=== PATIENT | male | born 1945 | race Caucasian/White ===

== ENCOUNTER 2018-11-26 10:56 | Outpatient (CLI) | payer MEDICARE ==
[~2018-11-26 10:56] MED LIST: Iopamidol 370 76% 100 ML VIAL ONE
[2018-11-26 11:29] LABS: Estimated GFR-MDRD - POC Greater than 90
--- NOTE | 2018-11-26 13:45 | CT ---
CT ANGIOGRAM ABDOMEN WITH AND WITHOUT IV CONTRAST AND 3D RECONSTRUCTIONS CT ANGIOGRAM PELVIS WITH AND WITHOUT IV CONTRAST AND 3D RECONSTRUCTIONS: Date: 11-26-18 History: Abdominal aortic aneurysm follow up evaluation after stent graft placement. Comparison: 11-04-14, 10-26-18 FINDINGS: Again noted are post-surgical changes related to placement of aortic iliac stent graft secondary to a n abdominal aortic aneurysm. Aneurysm sac diameter on today's exam measures 4.3 cm x 4 cm and similar slice selection on the prior study had measurements of 4 cm x 4 cm and this is overall stable when c ompared to the prior exam. Iliac limbs of the stent graft are patent. There are no findings to sugges t an endoleak. The celiac and superior mesenteric arteries are patent. Vascular calcifications are seen at the origi ns of each single renal artery which do appear patent. Vascular calcifications are seen in the iliac arteries bilaterally, but the iliac arteries as well as bilateral common femoral arteries do appear patent. Post-surgical changes are seen in each groin. Mo st proximal aspect of the superficial femoral and profunda femoral arteries are patent bilaterally. The lung bases are clear. Stable bilateral renal cysts are again noted. There is a stable hypodense lesion again seen in the le ft hepatic lobe, also likely related to a cyst. The spleen, pancreas, bilateral adrenal glands, and urinary bladder demonstrate a normal CT appearanc e. Degenerative change as well as post-surgical change of the lumbar spine are again seen. IMPRESSION: 1. Post-surgical changes related to treatment of abdominal aortic aneurysm with aortic stent graft no sara in place. Aneurysm sac diameter is grossly stable in size with greatest dimension of 4.3 cm, and no endoleak is seen. 2. Additional incidental findings are as described above, stable from prior exam. POS: [facility]
== END 2018-11-26 10:57 | disposition home or self-care (01) ==
LOC: CT 10:56
PROVIDERS: ATTEND Thoracic Surgery (Cardiothoracic Vascular Surgery)
DX: I71.4 Abdominal aortic aneurysm, without rupture (principal); Z95.828 Presence of other vascular implants and grafts
CPT/HCPCS: 74174; 82565; Q9967

== ENCOUNTER 2019-03-13 09:17 | Outpatient (CLI) | payer MEDICARE ==
--- NOTE | 2019-03-13 16:17 | NM ---
NUCLEAR MEDICINE BONE SCAN WHOLE BODY: (SKELETAL SCINTIGRAPHY) 03/13/19 HISTORY: 73-year-old male with malignant neoplasm of prostate. TECHNIQUE: IV injection of [id number]: 32.8 mCi 3 hour delayed whole body skeletal scintigraphy in anterior and posterior views. FINDINGS: There is a single focus of increased uptake focally at the lateral aspect of the right 7th rib. In re trospect, there is a subtle finding of a nondisplaced linear fracture lucency in thact location on CT of 10/26/18, and the current study represents osteoblastic repair activity. There are bilateral symme trical foci of very increased uptake at the bilateral sternoclavicular joints, for which that previou s CT demonstrates severe DJD. There is increased uptake at the bilateral knees consistent with osteoarthrosis. There are no foci of increased uptake in the skeleton that are suspicious for skeletal metastasis. IMPRESSION: 1. No evidence of skeletal metastasis. 2. Healing nondisplaced fracture of lateral aspect of the right 7th rib. 3. 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 4. Osteoarthrosis of bilateral knees. SHIRLENE Sanchez POS: [facility]
== END 2019-03-13 09:18 | disposition home or self-care (01) ==
LOC: NM 09:17
PROVIDERS: ATTEND Urology
DX: C61 Malignant neoplasm of prostate (principal); S22.31XD Fracture of one rib, right side, subsequent encounter for fracture with routine healing; M17.0 Bilateral primary osteoarthritis of knee; M19.012 Primary osteoarthritis, left shoulder; M19.011 Primary osteoarthritis, right shoulder
CPT/HCPCS: 78306; A9503

== ENCOUNTER 2019-08-01 12:12 | Outpatient (CLI) | payer MEDICARE ==
--- NOTE | 2019-08-01 13:31 | CT ---
EXAM: CT chest without contrast per low-dose cancer screening protocol HISTORY: History of smoking and nicotine dependence; greater than 60 pack-year smoking history. COMPARISON: None TECHNIQUE: Multiple contiguous axial images were obtained in a CT of the chest without contrast per l ow-dose cancer screening protocol. Sagittal and coronal reformats were performed. FINDINGS: Pulmonary nodules: No suspicious pulmonary nodules are seen. No focal infiltrates are seen. Pleural space: No pneumothorax or pleural effusion are seen. Heart: The heart is normal in size. Calcifications in the coronary arteries. Mediastinum: No hilar or mediastinal lymphadenopathy appreciated on this limited noncontrast examinat ion. Bones: Degenerative changes in the spine.. Visualized subdiaphragmatic structures: 2.5 cm hepatic hypodensity likely represents a cyst.. IMPRESSION: Lung RADS category 1-negative.
== END 2019-08-01 12:13 | disposition home or self-care (01) ==
LOC: CT 12:12
PROVIDERS: ATTEND Internal Medicine Hematology & Oncology
DX: F17.210 Nicotine dependence, cigarettes, uncomplicated (principal)
CPT/HCPCS: G0297

== ENCOUNTER 2019-11-24 13:25 | Outpatient (CLI) | payer MEDICARE ==
--- NOTE | 2019-11-24 15:30 | RAD ---
PA AND LATERAL CHEST: Date: 11/24/2019 HISTORY: Cough and hoarseness. COMPARISON: 09/08/10 study. FINDINGS: Heart size is within normal limits. There are atherosclerotic changes of the aorta. Lungs are clear o f any infiltrates. Some minimally increased interstitial lung changes are seen. IMPRESSION: Very mild chronic interstitial changes. POS: [facility]
== END 2019-11-24 13:26 | disposition home or self-care (01) ==
LOC: BICRAD 13:25
PROVIDERS: ATTEND Internal Medicine
DX: R05 Cough (principal); R49.9 Unspecified voice and resonance disorder; C61 Malignant neoplasm of prostate; F17.210 Nicotine dependence, cigarettes, uncomplicated
CPT/HCPCS: 36415; 71046; 80053; 82248; 83615; 84100; 84153; 84550

== ENCOUNTER 2020-02-26 10:47 | Observation (INO) | payer MEDICARE ==
[2020-02-26 11:24] LABS: #Eosinphils 0.2 thou/uL (0.0-0.7); #Lymphocytes 1.5 thou/uL (1.20-3.40); #Monocytes 0.9 thou/uL (0.11-0.59); #Neutrophils 6.1 thou/uL (1.40-6.50); %Basophils 0.3 % (0.0-1.0); %Eosinophils 2.9 % (0.0-10.0); %Lymphocytes 16.8 % (21.0-51.0); %Monocytes 10.1 % (0.0-10.0); %Neutrophils 69.9 % (42.0-75.0); Hemoglobin 15.5 g/dL (14.0-18.0); Mean Corpuscular HGB CONC 33.1 g/dL (32.0-36.0); Mean Corpuscular Hemoglobin 29.4 pg (27.0-31.0); Mean Corpuscular Volume 88.8 fL (78.0-98.0); Mean Platelet Volume 7.2 fL (7.4-10.4); Platelet Count 267 thou/uL (130-400); RBC Distribution Width 12.9 % (11.5-14.5); Red Blood Cell (RBC) Count 5.26 mill/uL (4.70-6.10); White Blood Cell (WBC) Count 8.7 thou/uL (4.8-10.8)
--- NOTE | 2020-02-26 11:36 | RAD ---
PORTABLE CHEST: Date: 02/26/2020 PROVIDED CLINICAL HISTORY: Shortness of breath. FINDINGS: Comparison with 02/17/2020 from [facility] [place]. Cardiac and mediastinal silhouette is within normal limits. Vascular calcification involves the aorti c arch. No focal consolidation, pleural fluid, or pneumothorax apparent. IMPRESSION: No evidence for an acute cardiopulmonary process. POS: [facility]
[2020-02-26 11:46] LABS: ALT (SGPT) 16 U/L (8-55); AST (SGOT) 25 U/L (5-34); Albumin 4.1 g/dL (3.4-4.8); Alkaline Phosphatase 122 U/L (40-110); Anion Gap 14 mmol/L (10-20); BUN (Urea Nitrogen) 28 mg/dL (8.4-25.7); Bilirubin, Total 0.5 mg/dL (0.2-1.2); Calc. Creatinine Clearance 0 mL/min (70-130); Calcium 9.3 mg/dL (7.8-10.44); Carbon Dioxide 29 mmol/L (23-31); Chloride 97 mmol/L (98-107); Estimated GFR-MDRD 53; Globulin 2.4 g/dL (2.4-3.5); Glucose 159 mg/dL (83-110); Magnesium 1.8 mg/dL (1.6-2.6); Potassium 3.4 mmol/L (3.5-5.1); Protein, Total 6.5 g/dL (5.8-8.1); Sodium 137 mmol/L (136-145)
[2020-02-26] MEDS ORDERED: Enoxaparin Sodium 100 MG/ML SYRINGE ONE (12:49)
[2020-02-26] MEDS ORDERED: Enoxaparin Sodium 30 MG/0.3 ML SYRINGE ONE (12:49)
[2020-02-26] MEDS ORDERED: Enoxaparin Sodium 80 MG/0.8 ML SYRINGE ONE (12:52)
[2020-02-26] MEDS ORDERED: Diltiazem 125 MG in Sodium Chloride 0.9% 100 ML IVPB PRN (13:43)
[2020-02-26 14:38] LABS: Troponin I 0.017 ng/mL (< 0.028)
[2020-02-26 15:28] VITALS: BMI 30.6
[2020-02-26] MEDS: Amiodarone 200 MG TAB PO SCH ×2 (15:57→20:53)
[2020-02-26 17:28] LABS: Troponin I 0.042 ng/mL (< 0.028)
[2020-02-26] MEDS: Acetaminophen/Codeine 30-300mg Tablet PO PRN ×2 (17:42→22:40)
[2020-02-26] MEDS ORDERED: Potassium Chloride 20 MEQ TAB PO SCH (17:45)
[2020-02-26] MEDS: Apixaban 5 MG TAB PO SCH (20:54)
--- NOTE | 2020-02-26 20:54 | HP ---
CHIEF COMPLAINT: Shortness of breath. HISTORY OF PRESENT ILLNESS: The patient is a 74-year-old male with history of coronary artery disease, hypertension, thyroid cancer status post resection, and prostate cancer undergoing chemo and radiation. The patient presented to the hospital today for shortness of breath that started yesterday evening. The patient checked his blood pressure and was found to be low according to him. He visited his business continuity planner, Dr. Torres, and he was noted to be tachycardic and EKG revealed atrial fibrillation with rapid ventricular response of new onset. In the ER, the patient was given a dose of diltiazem and his rate is currently controlled. REVIEW OF SYSTEMS: Negative except as noted in HPI. PAST MEDICAL HISTORY: As noted above. PAST SURGICAL HISTORY: Thyroid resection. ALLERGIES: THE PATIENT IS ALLERGIC TO IODINE. PHYSICAL EXAMINATION: GENERAL: The patient is alert and oriented x3. HEENT: Head is normocephalic and atraumatic. Extraocular muscles are intact. NECK: Supple. CARDIOVASCULAR: Examination revealed irregularly irregular rhythm with controlled rate. No murmurs, rubs, or gallop. ABDOMEN: Soft, nontender, and nondistended. NEUROLOGIC: Revealed cranial nerves intact 2 through 12 intact, motor and sensory exam. Peripheral edema is noted on extremity examination. ASSESSMENT: 1. New onset atrial fibrillation with rapid ventricular response. 2. Coronary artery disease. 3. History of prostate cancer. 4. History of thyroid cancer. 5. Hypothyroidism. 6. Hypertension. PLAN: 1. Admit to tele. Start amiodarone 400 mg orally t.i.d. 2. Start Eliquis 5 mg orally twice daily for atrial fibrillation with elevated CHADS-VASc score. 3. Diltiazem drip as needed for heart rate greater than 110. 4. Consult his business continuity planner, Dr. Torres. Job ID: [id number]
[2020-02-26] MEDS ORDERED: Amitriptyline HCl 25 MG TAB PO SCH (21:00)
[2020-02-27 04:48] LABS: #Eosinphils 0.4 thou/uL (0.0-0.7); #Lymphocytes 1.3 thou/uL (1.20-3.40); #Monocytes 0.7 thou/uL (0.11-0.59); #Neutrophils 3.7 thou/uL (1.40-6.50); %Basophils 0.3 % (0.0-1.0); %Eosinophils 7.3 % (0.0-10.0); %Monocytes 11.2 % (0.0-10.0); %Neutrophils 60.3 % (42.0-75.0); Hemoglobin 13.8 g/dL (14.0-18.0); Mean Corpuscular Hemoglobin 29.6 pg (27.0-31.0); Mean Corpuscular Volume 89.8 fL (78.0-98.0); Platelet Count 231 thou/uL (130-400); RBC Distribution Width 12.9 % (11.5-14.5); Red Blood Cell (RBC) Count 4.66 mill/uL (4.70-6.10); White Blood Cell (WBC) Count 6.2 thou/uL (4.8-10.8)
[2020-02-27 05:07] LABS: Anion Gap 9 mmol/L (10-20); BUN (Urea Nitrogen) 21 mg/dL (8.4-25.7); Calc. Creatinine Clearance 90 mL/min (70-130); Calcium 8.8 mg/dL (7.8-10.44); Carbon Dioxide 32 mmol/L (23-31); Chloride 103 mmol/L (98-107); Estimated GFR-MDRD 66; Glucose 130 mg/dL (83-110); Potassium 3.5 mmol/L (3.5-5.1); Sodium 140 mmol/L (136-145)
[2020-02-27] MEDS: Acetaminophen/Codeine 30-300mg Tablet PO PRN ×2 (06:58→14:15)
[2020-02-27] MEDS: Amiodarone 200 MG TAB PO SCH ×2 (09:21→14:15)
[2020-02-27] MEDS: Apixaban 5 MG TAB PO SCH (09:22)
[2020-02-27] MEDS ORDERED: Potassium Chloride 20 MEQ TAB PO SCH (14:45)
[2020-02-27] MEDS ORDERED: Spironolactone 25 MG TAB PO SCH (15:00)
[2020-02-27] MEDS ORDERED: Magnesium Sulfate 3 GM in Sodium Chloride 0.9% 100 ML IVPB SCH (15:00)
[2020-02-27] MEDS ORDERED: Lisinopril 20 MG TAB PO SCH (15:00)
[2020-02-27 15:29] VITALS: BP 162/62; TEMP 97.8
--- NOTE | 2020-02-27 15:39 | PRG ---
DATE OF SERVICE: 02/27/2020 SUBJECTIVE: Mr. Nieves feels better today. He did convert to sinus rhythm yesterday. He has been being loaded with amiodarone. Feels better, wants to go home. No chest pain or pressure. OBJECTIVE: VITAL SIGNS: Blood pressure is high 149/72. He did not receive the lisinopril this morning or the diuretic. LUNGS: Clear. CARDIAC: Normal S1 and normal S2. ABDOMEN: Soft and nontender. EXTREMITIES: Only mild edema now. ASSESSMENT: 1. Diastolic heart failure with improved volume status. 2. Hypertension. 3. Paroxysmal atrial fibrillation. 4. Coronary artery disease. 5. Peripheral vascular disease. PLAN: 1. He has been started on Eliquis 5 mg twice a day orally. 2. We will stop Plavix. 3. Continue aspirin. 4. Torsemide 20 mg twice a day. 5. Spironolactone increased to 25 mg twice a day. 6. Lisinopril 40 mg a day. 7. Stop amlodipine for now. 8. We will call him back in the office next week and get him back and see him, double check his status. We are also going to give him some intravenous magnesium, then he can be released home. Job ID: [id number]
[2020-02-27] MEDS ORDERED: Rosuvastatin 10 MG TAB PO SCH (21:00)
[2020-02-28] MEDS ORDERED: Spironolactone 25 MG TAB PO SCH (08:00)
[2020-02-28] MEDS ORDERED: Lisinopril 20 MG TAB PO SCH (09:00)
[2020-02-28] MEDS ORDERED: Torsemide 20 MG TAB PO SCH (09:00)
[2020-02-28] MEDS ORDERED: Aspirin 325 mg Enteric Coated Tablet PO SCH (09:00)
[2020-02-28] MEDS ORDERED: Amiodarone 200 MG TAB PO SCH (09:00)
== END 2020-02-27 17:43 | disposition home or self-care (01) ==
LOC: ERS 10:47 → 2NO 13:38
PROVIDERS: ADMIT Internal Medicine; ATTEND Internal Medicine
DX: I48.0 Paroxysmal atrial fibrillation (principal); I11.0 Hypertensive heart disease with heart failure; I50.30 Unspecified diastolic (congestive) heart failure; I25.10 Atherosclerotic heart disease of native coronary artery without angina pectoris; I73.9 Peripheral vascular disease, unspecified; C61 Malignant neoplasm of prostate; E89.0 Postprocedural hypothyroidism; K21.9 Gastro-esophageal reflux disease without esophagitis; F17.200 Nicotine dependence, unspecified, uncomplicated; Z79.02 Long term (current) use of antithrombotics/antiplatelets; Z79.52 Long term (current) use of systemic steroids; Z79.82 Long term (current) use of aspirin; Z79.899 Other long term (current) drug therapy; Z88.5 Allergy status to narcotic agent; Z91.041 Radiographic dye allergy status
CPT/HCPCS: 71045; 80048; 83605; 83735; 83880; 84439; 84484 ×2; 85025; 93005; 96365; 96372; 96376; 99285; G0378 ×3; 36415; 80053; 84443; 96374; J1650; J3475; J3490

== ENCOUNTER 2020-08-03 09:43 | Outpatient (CLI) | payer MEDICARE ==
--- NOTE | 2020-08-03 10:41 | CT ---
EXAM: CT chest without contrast PROVIDED CLINICAL HISTORY: Personal history of nicotine dependence, low dose lung screening COMPARISON: 08/01/2019 FINDINGS: Vascular calcification including coronary calcium is demonstrated. The heart, pericardium and great v essels are suboptimally evaluated in the absence of IV contrast material but demonstrate an otherwise unremarkable unenhanced CT appearance. The airway appears patent and of normal caliber. The lungs are free of suspicious opacity. No pleural fluid, pleural thickening or pneumothorax apparent. No evidence for dressing lymph node enlargement with limitations due to lack of IV contrast material. The visualized portions of the upper abdomen demonstrate a stable unenhanced CT appearance. The osseous structures demonstrate no concerning lytic or blastic lesions. Prominent thoracic spondyl osis changes are seen. IMPRESSION: Lung RADS category 1-negative. Continue annual screening.
== END 2020-08-03 09:44 | disposition home or self-care (01) ==
LOC: BICCT 09:43
PROVIDERS: ATTEND Internal Medicine Hematology & Oncology
DX: Z12.2 Encounter for screening for malignant neoplasm of respiratory organs (principal); F17.210 Nicotine dependence, cigarettes, uncomplicated
CPT/HCPCS: G0297

== ENCOUNTER 2020-10-18 07:49 | Outpatient (CLI) | payer MEDICARE ==
[2020-10-18 14:23] LABS: Hemoglobin 15.1 g/dL (14.0-18.0); Mean Corpuscular HGB CONC 32.8 G/DL (32.0-36.0); Mean Corpuscular Hemoglobin 28.4 PG (27.0-33.0); Mean Corpuscular Volume 86.8 fl (80.0-100.0); Mean Platelet Volume 9.9 fl (7.4-10.4); Platelet Count 278 10x3/uL (130-400); RBC Distribution Width 13.7 % (11.5-14.5); Red Blood Cell (RBC) Count 5.31 10x6/uL (4.40-5.80); White Blood Cell (WBC) Count 7.8 10x3/uL (4.5-11.0)
[2020-10-18 14:38] LABS: Prothrombin Time 10.9 sec (9.5-12.1)
[2020-10-18 15:29] LABS: Anion Gap 16 mmol/L (10-20); BUN (Urea Nitrogen) 16 mg/dL (8.4-25.7); Calc. Creatinine Clearance 0 mL/min (70-130); Calcium 9.5 mg/dL (7.8-10.44); Carbon Dioxide 23 mmol/L (23-31); Chloride 103 mmol/L (98-107); Glucose 97 mg/dL (83-110); Potassium 4.4 mmol/L (3.5-5.1); Sodium 138 mmol/L (136-145)
[2020-10-18 22:19] LABS: SARS-CoV-2 MS2 Positive; SARS-CoV-2 N Gene Negative; SARS-CoV-2 S Gene Negative; SARS-CoV-2 by NAA Not Detected (NotDetected); SARS-CoV-2 orf1ab Negative
== END 2020-10-18 07:50 | disposition home or self-care (01) ==
LOC: LABBT 07:49
PROVIDERS: ATTEND Internal Medicine Cardiovascular Disease
DX: Z01.812 Encounter for preprocedural laboratory examination (principal); I48.0 Paroxysmal atrial fibrillation; Z20.822 Contact with and (suspected) exposure to COVID-19
CPT/HCPCS: 80048; 85027; 85610; U0003; 87635

== ENCOUNTER 2020-12-02 08:56 | Day surgery (SDC) | payer MEDICARE ==
[2020-12-01 14:11] VITALS: BMI 30.9
[2020-12-02] MEDS ORDERED: Heparin 10,000 UNITS/ 10 ML VIAL ONE ×2 (09:13→11:36)
[2020-12-02] MEDS ORDERED: Fentanyl 100 MCG/2 ML VIAL ONE ×4 (09:26→14:33)
[2020-12-02] MEDS ORDERED: ePHEDrine 50 MG/ML VIAL ONE (09:31)
[2020-12-02] MEDS ORDERED: PROPOFOL 200 MG/20 ML VIAL ONE (09:31)
[2020-12-02] MEDS ORDERED: Glycopyrrolate 0.2 MG/ML 5 ML SYRINGE ONE (09:31)
[2020-12-02] MEDS ORDERED: Ondansetron PF 4 MG/2 ML Vial ONE (09:31)
[2020-12-02] MEDS ORDERED: Lidocaine 1% PF 5 ML VIAL ONE (09:31)
[2020-12-02] MEDS ORDERED: Rocuronium Bromide 10 MG/ML (10ML VIAL) ONE (09:31)
[2020-12-02] MEDS ORDERED: Dexamethasone 20 MG/5 ML VIAL ONE (09:31)
[2020-12-02] MEDS ORDERED: Lidocaine 1% (PF) 30 ML VIAL ONE (09:32)
[2020-12-02] MEDS ORDERED: Phenylephrine 10 MG/ML VIAL ONE (10:38)
[2020-12-02] MEDS ORDERED: Heparin 25,000 units/D5W 500 ML ONE (11:19)
[2020-12-02] MEDS ORDERED: Protamine Sulfate 50 MG/5 ML VIAL ONE (12:50)
[2020-12-02] MEDS ORDERED: Promethazine HCl 25 MG/ML VIAL ONE (14:05)
--- NOTE | 2020-12-02 14:50 | OP ---
DATE OF PROCEDURE: 12/02/2020 PRIMARY CARE PHYSICIAN: Rico Marin MD REFERRING AUTO PARTS CLERK: Khadra Torres MD. PREOPERATIVE DIAGNOSIS: Paroxysmal atrial fibrillation. POSTOPERATIVE DIAGNOSIS: Paroxysmal atrial fibrillation. PROCEDURES PERFORMED: 1. Pulmonary vein isolation. 2. Additional linear lesions, cavotricuspid isthmus ablation. 3. 3D mapping of arrhythmia. 4. Intracardiac echocardiography. RETAIL CASHIER ASSOCIATE: None. ANESTHESIA: General endotracheal. SPECIMENS: None. ESTIMATED BLOOD LOSS: 20 mL. COMPLICATIONS: None. DESCRIPTION OF PROCEDURE: The risks, benefits, and alternatives were discussed prior to the procedure including, but not limited to myocardial infarction, stroke, , damage to oropharyngeal or esophageal structures, damage to vascular structures would need for surgery, damage to cardiac structures would need for surgery, pericardial effusion, and allergic reaction. The patient voiced understanding and was agreeable to proceed. The patient was intubated by Anesthesia. Transesophageal echocardiogram showed normal left atrial size with ejection fraction of 65%, aortic sclerosis, and trace mitral regurgitation. Bilateral femoral areas were prepped and draped in a sterile fashion. Lidocaine was infiltrated in these areas. Using ultrasound guidance, two long 7-Polish sheaths were placed in the left femoral vein and two Lamp 45 sheaths were placed in the right femoral vein. A 7-Polish sheath was exchanged for a long 9-Polish sheath. Decapolar catheter was placed in the coronary sinus with 3D guidance. Intracardiac echo was placed in the right atrium. 3D mapping was performed with HD Grid catheter. Transseptal catheterization was performed. 3D mapping of the left atrium was performed. A 2nd transseptal puncture was performed. The Lamp 45 sheath was exchanged over a guidewire for the Agilis sheath. Using a TactiCath SE catheter, radiofrequency in the usual area was applied to the pulmonary vein antrum to isolate all 4 pulmonary veins. Esophageal temperature was monitored during the case. There was no esophageal temperature rise. Heparin was given prior to transseptal catheterization and ACT was monitored for target 300 to 350 seconds. Sheaths were pulled back to the right side. Heparin was discontinued and protamine was given. Cavotricuspid isthmus ablation was performed medial to lateral and lateral to medial block, persisted 20 minutes after the last radiofrequency lesion with conduction across the isthmus at 187 milliseconds. Sheaths were pulled. 0 Ethibond sutures were used to assist with closure. The patient tolerated procedure well. He was transferred to the postanesthesia care unit without complications. CONCLUSION: 1. Paroxysmal atrial fibrillation. 2. Successful pulmonary vein isolation and cavotricuspid isthmus ablation. PLAN: 1. Restart Eliquis 5 mg b.i.d. tonight. 2. Continue Multaq. 3. Continue omeprazole. 4. Follow up with TYREE Hall on 12/16/2020 at 10:00 a.m. Job ID: [id number]
[2020-12-02] MEDS ORDERED: Acetaminophen/Codeine 30-300mg Tablet ONE (15:43)
[2020-12-02] MEDS ORDERED: hydrALAZINE 20 MG/ML VIAL ONE (15:55)
--- NOTE | 2020-12-02 21:06 | EKG ---
Test Reason : POST ABLATION Blood Pressure : / mmHG Vent. Rate : 068 BPM Atrial Rate : 068 BPM P-R Int : 196 ms QRS Dur : 098 ms QT Int : 464 ms P-R-T Axes : 079 040 063 degrees QTc Int : 493 ms Normal sinus rhythm Prolonged QT Abnormal ECG No previous ECGs available Confirmed by Linda FALCON ([id number]) on 12/02/2020 9:05:59 PM Referred By: SARAH Confirmed By:Linda FALCON
== END 2020-12-02 20:05 | disposition home or self-care (01) ==
LOC: CCL 08:56
PROVIDERS: ATTEND Internal Medicine Cardiovascular Disease
PROC: 4A023FZ Measurement of Cardiac Rhythm, Percutaneous Approach (ICD-10-PCS; principal; 2020-12-02)
PROC: 4A0234Z Measurement of Cardiac Electrical Activity, Percutaneous Approach (ICD-10-PCS; 2020-12-02)
PROC: 02583ZZ Destruction of Conduction Mechanism, Percutaneous Approach (ICD-10-PCS; 2020-12-02)
PROC: 02K83ZZ Map Conduction Mechanism, Percutaneous Approach (ICD-10-PCS; 2020-12-02)
PROC: B24BZZ4 Ultrasonography of Heart with Aorta, Transesophageal (ICD-10-PCS; 2020-12-02)
DX: I48.0 Paroxysmal atrial fibrillation (principal); Z79.82 Long term (current) use of aspirin; Z79.899 Other long term (current) drug therapy; Z88.5 Allergy status to narcotic agent; Z91.041 Radiographic dye allergy status
CPT/HCPCS: 76942; 85347; 93005; 93312; 93613; 93622; 93655; 93656; 93662; C1730; C1731; C1732; C1753; C1894; C2630; J0360; J1100; J1644; J2001; J2370; J2405; J2550; J2704; J2720; J3010; J3490

== ENCOUNTER 2021-08-04 09:04 | Outpatient (CLI) | payer MEDICARE | END 2021-08-04 09:05 | disposition home or self-care (01) | LOC: BICCT 09:04 | PROVIDERS: ATTEND Internal Medicine Hematology & Oncology | DX: Z12.2 Encounter for screening for malignant neoplasm of respiratory organs (principal); F17.210 Nicotine dependence, cigarettes, uncomplicated | CPT/HCPCS: 71271 ==

== ENCOUNTER 2022-03-01 12:11 | Outpatient (CLI) | payer MEDICARE | END 2022-03-01 12:12 | disposition home or self-care (01) | LOC: MRI 12:11 | PROVIDERS: ATTEND Nurse Practitioner Family | DX: M50.10 Cervical disc disorder with radiculopathy, unspecified cervical region (principal); M50.00 Cervical disc disorder with myelopathy, unspecified cervical region | CPT/HCPCS: 72141 ==

== ENCOUNTER 2022-03-24 15:28 | Outpatient (CLI) | payer MEDICARE | END 2022-03-24 15:29 | disposition home or self-care (01) | LOC: TBSIIMAG 15:28 | PROVIDERS: ATTEND Neurological Surgery | DX: M47.22 Other spondylosis with radiculopathy, cervical region (principal) | CPT/HCPCS: 72040 ==

== ENCOUNTER 2022-05-25 11:02 | Outpatient (CLI) | payer MEDICARE | END 2022-05-25 11:03 | disposition home or self-care (01) | LOC: LABBT 11:02 | PROVIDERS: ATTEND Thoracic Surgery (Cardiothoracic Vascular Surgery) | DX: Z53.9 Procedure and treatment not carried out, unspecified reason (principal) | CPT/HCPCS: 80048; 85027; 86850; 86900; 86901; 87811 ==

== ENCOUNTER 2022-07-24 10:02 | Outpatient (CLI) | payer MEDICARE | END 2022-07-24 10:03 | disposition home or self-care (01) | LOC: BICCT 10:02 | PROVIDERS: ATTEND Internal Medicine Hematology & Oncology | DX: Z12.2 Encounter for screening for malignant neoplasm of respiratory organs (principal); F17.210 Nicotine dependence, cigarettes, uncomplicated | CPT/HCPCS: 71271 ==

== ENCOUNTER 2022-09-21 13:48 | Outpatient (CLI) | payer MEDICARE | END 2022-09-21 13:49 | disposition home or self-care (01) | LOC: BICRAD 13:48 | PROVIDERS: ATTEND Family Medicine | DX: Z01.818 Encounter for other preprocedural examination (principal); J98.4 Other disorders of lung; R91.8 Other nonspecific abnormal finding of lung field | CPT/HCPCS: 71046 ==

== ENCOUNTER 2022-09-26 12:17 | Outpatient (CLI) | payer MEDICARE ==
[2020-11-29 12:33] LABS: Hemoglobin 14.6 g/dL (13.5-17.5); Mean Corpuscular HGB CONC 32.4 g/dL (32.0-36.0); Mean Corpuscular Hemoglobin 28.4 pg (27.0-33.0); Mean Corpuscular Volume 87.5 fl (81.2-95.1); Mean Platelet Volume 9.5 fl (7.4-10.4); Platelet Count 254 10x3/uL (150-450); RBC Distribution Width 13.8 % (11.5-14.5); Red Blood Cell (RBC) Count 5.14 10x6/uL (4.32-5.72)
[2020-11-29 12:47] LABS: Prothrombin Time 10.8 sec (9.5-12.1)
[2020-11-29 13:14] LABS: Anion Gap 13 mmol/L (10-20); BUN (Urea Nitrogen) 16 mg/dL (8.4-25.7); Calc. Creatinine Clearance 0 mL/min (70-130); Calcium 9.2 mg/dL (7.8-10.44); Carbon Dioxide 26 mmol/L (23-31); Chloride 104 mmol/L (98-107); Glucose 168 mg/dL (83-110); Potassium 4.6 mmol/L (3.5-5.1); Sodium 138 mmol/L (136-145)
[2022-09-26 14:15] LABS: Hemoglobin 14.8 g/dL (13.5-17.5); Mean Corpuscular Hemoglobin 29.2 pg (27.0-33.0); Mean Corpuscular Volume 88.6 fl (81.2-95.1); Mean Platelet Volume 9.5 fl (7.4-10.4); Platelet Count 225 10x3/uL (150-450); RBC Distribution Width 14.5 % (11.5-14.5); Red Blood Cell (RBC) Count 5.07 10x6/uL (4.32-5.72); White Blood Cell (WBC) Count 6.6 10x3/uL (3.5-10.5)
[2022-09-26 14:18] LABS: INR-International Normal Ratio 0.9; PTT 30.5 sec (22.0-33.0); Prothrombin Time 10.3 sec (9.5-12.1)
[2022-09-26 14:20] LABS: Anion Gap 14 mmol/L (10-20); BUN (Urea Nitrogen) 19 mg/dL (8.4-25.7); Calc. Creatinine Clearance 0 mL/min (70-130); Calcium 9.2 mg/dL (7.8-10.44); Carbon Dioxide 24 mmol/L (23-31); Chloride 107 mmol/L (98-107); Estimated GFR 60; Glucose 115 mg/dL (83-110); Potassium 4.8 mmol/L (3.5-5.1); Sodium 140 mmol/L (136-145)
== END 2022-09-26 12:18 | disposition home or self-care (01) ==
LOC: LABBT 12:17
PROVIDERS: ATTEND Neurological Surgery
DX: Z01.812 Encounter for preprocedural laboratory examination (principal); M47.12 Other spondylosis with myelopathy, cervical region; Z20.822 Contact with and (suspected) exposure to COVID-19
CPT/HCPCS: 80048; 85027; 85610; U0003; U0005; 85730

== ENCOUNTER 2022-10-03 09:25 | Inpatient (IN) | payer MEDICARE ==
[2022-09-28 08:53] VITALS: BMI 31.6
[2022-10-03] MEDS ORDERED: Neomycin-Polymyxin 1 ML AMP ONE (11:31)
[2022-10-03] MEDS ORDERED: Thrombin 5000 UNITS/5 ML VIAL ONE (11:31)
[2022-10-03] MEDS ORDERED: Lidocaine 1% (PF) 30 ML VIAL ONE (11:33)
[2022-10-03] MEDS ORDERED: EPINEPHrine 1 MG/ML AMP ONE (11:33)
[2022-10-03] MEDS ORDERED: CEFAZOLIN 2 GM VIAL ONE (11:52)
[2022-10-03] MEDS ORDERED: Sodium Chloride 0.9% 100 ML ONE (11:52)
[2022-10-03] MEDS ORDERED: Fentanyl 250 MCG/5 ML VIAL ONE (12:00)
[2022-10-03] MEDS ORDERED: Dexamethasone 20 MG/5 ML VIAL ONE (12:20)
[2022-10-03] MEDS ORDERED: Rocuronium Bromide 10 MG/ML (10ML VIAL) ONE (12:20)
[2022-10-03] MEDS ORDERED: Ondansetron PF 4 MG/2 ML Vial ONE (12:20)
[2022-10-03] MEDS ORDERED: PHENYLEPHRINE-NS 100 MCG/ML 10 ML SYRINGE ONE (12:20)
[2022-10-03] MEDS ORDERED: NEOSTIGMINE 3 MG/3 ML SYR 3 MG/3 ML SYRINGE ONE (12:20)
[2022-10-03] MEDS ORDERED: PROPOFOL 200 MG/20 ML VIAL ONE (12:20)
[2022-10-03] MEDS ORDERED: Lidocaine 1% PF 5 ML VIAL ONE (12:20)
[2022-10-03] MEDS ORDERED: Vecuronium 10 MG VIAL ONE (12:20)
[2022-10-03] MEDS ORDERED: ePHEDrine 50 MG/ML VIAL ONE (12:20)
[2022-10-03] MEDS ORDERED: Glycopyrrolate 0.2 MG/ML 5 ML SYRINGE ONE (12:20)
[2022-10-03] MEDS ORDERED: Succinylcholine Chloride 100 MG/5 ML SYRINGE FS ONE (12:20)
[2022-10-03] MEDS ORDERED: Promethazine HCl 25 MG/ML VIAL IVPB PRN (17:57)
[2022-10-03] MEDS ORDERED: Ondansetron HCl/PF 4 MG/2 ML Vial IVP PRN (17:57)
[2022-10-03] MEDS ORDERED: Promethazine HCl 25 MG/ML VIAL IM PRN ×2 (17:57→17:59)
[2022-10-03] MEDS ORDERED: HYDROmorphone 2 MG/ML VIAL SLOW IVP PRN (17:57)
[2022-10-03] MEDS ORDERED: Promethazine HCl 12.5 MG SUPP PR PRN (17:59)
[2022-10-03] MEDS ORDERED: Bisacodyl 10 MG SUPP PR PRN (17:59)
[2022-10-03] MEDS ORDERED: Promethazine 25 MG TAB PO PRN (17:59)
[2022-10-03] MEDS ORDERED: diphenhydrAMINE 25 MG CAP PO PRN (17:59)
[2022-10-03] MEDS ORDERED: Ondansetron PF 4 MG/2 ML Vial IVP PRN (17:59)
[2022-10-03] MEDS ORDERED: diphenhydrAMINE 50 MG/ML VIAL IVP PRN (17:59)
[2022-10-03] MEDS ORDERED: Fentanyl 100 MCG/2 ML VIAL ONE ×2 (18:01→18:34)
[2022-10-03] MEDS ORDERED: Fentanyl 100 MCG/2 ML VIAL SLOW IVP PRN (18:05)
[2022-10-03] MEDS ORDERED: traMADol HCl 50 MG TAB PO PRN (18:06)
[2022-10-03] MEDS: Sodium Chloride 0.9% 1,000 ML IV SCH (20:17)
[2022-10-03] MEDS: CEFAZOLIN 3 GM in Sodium Chloride 0.9% 100 ML IVPB SCH ×2 (20:17→20:56)
[2022-10-03] MEDS: traMADol HCl 50 MG TAB PO PRN (20:20)
[2022-10-03 21:21] LABS: SARS-CoV-2 NAA Rapid Test Not Detected (NotDetected)
[2022-10-03] MEDS ORDERED: Acetaminophen 325 MG TAB PO PRN (21:39)
[2022-10-03] MEDS ORDERED: Ondansetron ODT 4 MG TAB PO PRN (21:39)
[2022-10-03] MEDS ORDERED: Docusate 100 MG CAP PO PRN (21:41)
[2022-10-03] MEDS ORDERED: Baclofen 10 MG TAB PO PRN (21:41)
[2022-10-03] MEDS ORDERED: Pregabalin 50 MG CAP PO SCH (22:00)
[2022-10-03] MEDS ORDERED: FENTANYL 50 MCG/ML 1 ML VIAL SLOW IVP PRN (23:38)
[2022-10-04] MEDS: traMADol HCl 50 MG TAB PO PRN ×2 (02:05→09:01)
[2022-10-04] MEDS: CEFAZOLIN 3 GM in Sodium Chloride 0.9% 100 ML IVPB SCH (03:41)
[2022-10-04] MEDS ORDERED: Tamsulosin HCl 0.4 MG CAP PO SCH ×2 (06:00→21:00)
[2022-10-04 06:41] LABS: #Eosinphils 0.1 thou/uL (0.0-0.7); #Lymphocytes 1.3 thou/uL (1.20-3.40); #Neutrophils 7.9 thou/uL (1.40-6.50); %Basophils 0.1 % (0.0-1.0); %Eosinophils 0.5 % (0.0-10.0); %Lymphocytes 12.7 % (21.0-51.0); %Monocytes 9.7 % (0.0-10.0); %Neutrophils 76.9 % (42.0-75.0); Hemoglobin 15.3 g/dL (14.0-18.0); Mean Corpuscular HGB CONC 31.6 g/dL (32.0-36.0); Mean Corpuscular Hemoglobin 29.1 pg (27.0-31.0); Mean Corpuscular Volume 91.9 fl (78.0-98.0); Mean Platelet Volume 7.6 fL (7.4-10.4); Platelet Count 214 10x3/uL (130-400); RBC Distribution Width 14.3 % (11.5-14.5); Red Blood Cell (RBC) Count 5.27 mill/uL (4.70-6.10); White Blood Cell (WBC) Count 10.3 10x3/uL (4.8-10.8)
[2022-10-04 07:02] LABS: Anion Gap 14 mmol/L (10-20); BUN (Urea Nitrogen) 18 mg/dL (8.4-25.7); Calc. Creatinine Clearance 81 mL/min (70-130); Carbon Dioxide 25 mmol/L (23-31); Chloride 101 mmol/L (98-107); Estimated GFR 63; Glucose 127 mg/dL (83-110); Magnesium 2.3 mg/dL (1.6-2.6); Potassium 5.1 mmol/L (3.5-5.1); Sodium 135 mmol/L (136-145)
[2022-10-04] MEDS ORDERED: Polyethylene Glycol 3350 17 GM Packet PO SCH (09:00)
[2022-10-04] MEDS ORDERED: Levothyroxine Sodium 125 MCG TAB PO SCH (09:00)
[2022-10-04] MEDS: Sodium Chloride 0.9% 1,000 ML IV SCH (09:04)
[2022-10-04 11:47] VITALS: BP 125/81; TEMP 98
[2022-10-04] MEDS ORDERED: Rosuvastatin 10 MG TAB PO SCH (21:00)
[2022-10-04] MEDS ORDERED: Pregabalin 50 MG CAP PO SCH (21:00)
[2022-10-04] MEDS ORDERED: Spironolactone 25 MG TAB PO SCH (21:00)
== END 2022-10-04 14:35 | disposition home or self-care (01) | DRG 472 ==
LOC: SDC 09:25 → SURG A 19:42
PROVIDERS: ADMIT Neurological Surgery; ATTEND Neurological Surgery
PROC: 0RG20A0 Fusion of 2 or more Cervical Vertebral Joints with Interbody Fusion Device, Anterior Approach, Anterior Column, Open Approach (ICD-10-PCS; principal; 2022-10-03)
PROC: 00NW0ZZ Release Cervical Spinal Cord, Open Approach (ICD-10-PCS; 2022-10-03)
PROC: 0RB30ZZ Excision of Cervical Vertebral Disc, Open Approach (ICD-10-PCS; 2022-10-03)
PROC: 4A11X4G Monitoring of Peripheral Nervous Electrical Activity, Intraoperative, External Approach (ICD-10-PCS; 2022-10-03)
DX: M50.01 Cervical disc disorder with myelopathy, high cervical region (principal); M47.12 Other spondylosis with myelopathy, cervical region; Z20.822 Contact with and (suspected) exposure to COVID-19; M50.11 Cervical disc disorder with radiculopathy, high cervical region; I25.10 Atherosclerotic heart disease of native coronary artery without angina pectoris; I48.91 Unspecified atrial fibrillation; E89.0 Postprocedural hypothyroidism; I87.2 Venous insufficiency (chronic) (peripheral); M47.22 Other spondylosis with radiculopathy, cervical region; I48.0 Paroxysmal atrial fibrillation; Z88.5 Allergy status to narcotic agent; Z91.012 Allergy to eggs; Z85.850 Personal history of malignant neoplasm of thyroid; Z92.3 Personal history of irradiation; Z92.21 Personal history of antineoplastic chemotherapy; Z90.49 Acquired absence of other specified parts of digestive tract; Z98.890 Other specified postprocedural states; Z80.9 Family history of malignant neoplasm, unspecified; Z82.49 Family history of ischemic heart disease and other diseases of the circulatory system; Z87.891 Personal history of nicotine dependence; Z79.899 Other long term (current) drug therapy; Z98.1 Arthrodesis status; Z83.3 Family history of diabetes mellitus; Z91.041 Radiographic dye allergy status
CPT/HCPCS: 36415; 80048; 83735; 85025; C1713; C1768; J0171; J1100; J2001; J2405; J2704; J3010; J3490; J7050; U0002

== ENCOUNTER 2022-10-09 02:34 | Emergency (ER) | payer MEDICARE ==
[2022-10-09 04:09] LABS: #Eosinphils 0.5 thou/uL (0.0-0.7); #Lymphocytes 1.1 thou/uL (1.20-3.40); #Monocytes 0.6 thou/uL (0.11-0.59); #Neutrophils 5.2 thou/uL (1.40-6.50); %Basophils 0.4 % (0.0-1.0); %Eosinophils 6.3 % (0.0-10.0); %Lymphocytes 15.1 % (21.0-51.0); %Monocytes 8.5 % (0.0-10.0); %Neutrophils 69.8 % (42.0-75.0); Hemoglobin 14.7 g/dL (14.0-18.0); Mean Corpuscular Hemoglobin 29.7 pg (27.0-31.0); Mean Corpuscular Volume 89.8 fl (78.0-98.0); Mean Platelet Volume 7.3 fL (7.4-10.4); Platelet Count 275 10x3/uL (130-400); RBC Distribution Width 13.5 % (11.5-14.5); Red Blood Cell (RBC) Count 4.96 mill/uL (4.70-6.10); White Blood Cell (WBC) Count 7.5 10x3/uL (4.8-10.8)
[2022-10-09 04:13] LABS: ALT (SGPT) 25 U/L (8-55); AST (SGOT) 44 U/L (5-34); Albumin 4.1 g/dL (3.4-4.8); Alkaline Phosphatase 108 U/L (40-110); Anion Gap 16 mmol/L (10-20); BUN (Urea Nitrogen) 17 mg/dL (8.4-25.7); Bilirubin, Total 0.7 mg/dL (0.2-1.2); Calc. Creatinine Clearance 0 mL/min (70-130); Carbon Dioxide 23 mmol/L (23-31); Chloride 104 mmol/L (98-107); Estimated GFR 59; Globulin 2.6 g/dL (2.4-3.5); Glucose 134 mg/dL (83-110); Potassium 5.2 mmol/L (3.5-5.1); Protein, Total 6.7 g/dL (5.8-8.1); Sodium 138 mmol/L (136-145)
[2022-10-09 07:28] LABS: Bilirubin Negative (Negative); Blood, Urine Negative (Negative); Clarity Clear (Clear); Glucose, Urine (Dipstick) Greater than 1000 mg/dL (Negative); Ketone, Urine Negative (Negative); Leukocyte Negative Leu/uL (Negative); Nitrite Negative (Negative); Protein, Urine (Dipstick) Negative (Neg-Trace); Specific Gravity, Urine 1.029 (1.002-1.036); Urobilinogen Normal mg/dL (Less than 2); pH, Urine 5.5 (5.0-9.0)
== END 2022-10-09 07:58 | disposition home or self-care (01) ==
LOC: ERS 02:34
DX: R06.02 Shortness of breath (principal); K21.9 Gastro-esophageal reflux disease without esophagitis; E78.00 Pure hypercholesterolemia, unspecified; I10 Essential (primary) hypertension; F17.200 Nicotine dependence, unspecified, uncomplicated
CPT/HCPCS: 36415; 71046; 80053; 81003; 83880; 84484; 85025; 93005

== ENCOUNTER 2022-11-22 10:03 | Outpatient (CLI) | payer MEDICARE | END 2022-11-22 10:04 | disposition home or self-care (01) | LOC: TBSIIMAG 10:03 | PROVIDERS: ATTEND Neurological Surgery | DX: M47.12 Other spondylosis with myelopathy, cervical region (principal); M25.78 Osteophyte, vertebrae; Z98.890 Other specified postprocedural states | CPT/HCPCS: 72040 ==

== ENCOUNTER 2023-07-23 09:55 | Outpatient (CLI) | payer MEDICARE | END 2023-07-23 09:56 | disposition home or self-care (01) | LOC: CT 09:55 | PROVIDERS: ATTEND Internal Medicine Hematology & Oncology | DX: Z12.2 Encounter for screening for malignant neoplasm of respiratory organs (principal); F17.210 Nicotine dependence, cigarettes, uncomplicated | CPT/HCPCS: 71271 ==

== ENCOUNTER 2024-02-12 05:51 | Day surgery (SDC) | payer MEDICARE ==
[2024-02-07 12:55] VITALS: BMI 31.2
[2024-02-12] MEDS ORDERED: Bupivacaine PF 0.5% 30 ML VIAL ONE (06:52)
[2024-02-12] MEDS ORDERED: Bacitracin Zinc Ointment 30 gm TUBE ONE (06:52)
[2024-02-12] MEDS ORDERED: fentaNYL PF 100 MCG/2 ML SYRINGE ONE (07:10)
[2024-02-12] MEDS ORDERED: PROPOFOL 60 ML ONE (07:10)
[2024-02-12] MEDS ORDERED: CEFAZOLIN 2 GM VIAL ONE (07:11)
[2024-02-12] MEDS ORDERED: Sodium Chloride 0.9% 100 ML ONE (07:11)
[2024-02-12] MEDS ORDERED: Lidocaine 1% PF 5 ML VIAL ONE (07:12)
[2024-02-12] MEDS ORDERED: PROPOFOL 20 ML ONE (07:56)
[2024-02-12] MEDS ORDERED: fentaNYL 50 mcg/mL 1 mL Vial ONE (08:43)
== END 2024-02-12 10:02 | disposition home or self-care (01) ==
LOC: SDC 05:51
PROVIDERS: ATTEND Orthopaedic Surgery Hand Surgery
PROC: 01N50ZZ Release Median Nerve, Open Approach (ICD-10-PCS; principal; 2024-02-12)
DX: G56.03 Carpal tunnel syndrome, bilateral upper limbs (principal); G56.13 Other lesions of median nerve, bilateral upper limbs; I25.10 Atherosclerotic heart disease of native coronary artery without angina pectoris; E11.9 Type 2 diabetes mellitus without complications; I10 Essential (primary) hypertension; E78.5 Hyperlipidemia, unspecified; E03.9 Hypothyroidism, unspecified; Z90.49 Acquired absence of other specified parts of digestive tract; Z87.891 Personal history of nicotine dependence; Z90.89 Acquired absence of other organs; Z79.890 Hormone replacement therapy; Z79.84 Long term (current) use of oral hypoglycemic drugs; Z79.82 Long term (current) use of aspirin; Z79.899 Other long term (current) drug therapy; Z88.5 Allergy status to narcotic agent; Z91.041 Radiographic dye allergy status
CPT/HCPCS: 64708; 64721; J3010; A6223; J0665; J2704; J3490

== ENCOUNTER 2024-07-21 11:56 | Outpatient (CLI) | payer MEDICARE | END 2024-07-21 11:57 | disposition home or self-care (01) | LOC: CT 11:56 | PROVIDERS: ATTEND Internal Medicine Hematology & Oncology | DX: Z12.2 Encounter for screening for malignant neoplasm of respiratory organs (principal); F17.210 Nicotine dependence, cigarettes, uncomplicated | CPT/HCPCS: 71271 ==

== ENCOUNTER 2024-08-04 10:39 | Outpatient (CLI) | payer MEDICARE ==
[2024-08-04 12:44] LABS: #Basophils 0.06 10x3/uL (0.0-0.2); %Basophils 0.9 % (0.0-1.0); %Eosinophils 4.2 % (0.0-10.0); %Lymphocytes 19.6 % (21.0-51.0); %Monocytes 8.1 % (0.0-10.0); %Neutrophils 67.1 % (42.0-75.0); Hematocrit 46.1 % (42.0-52.0); Hemoglobin 14.7 g/dL (14.0-18.0); Mean Corpuscular HGB CONC 31.9 g/dL (32.0-36.0); Mean Corpuscular Hemoglobin 29.2 pg (27.0-31.0); Mean Corpuscular Volume 91.7 fL (78.0-98.0); Mean Platelet Volume 9.8 fL (7.4-10.4); Platelet Count 191 10x3/uL (130-400); RBC Distribution Width 14.1 % (11.5-14.5); Red Blood Cell (RBC) Count 5.03 mill/uL (4.70-6.10)
[2024-08-04 12:56] LABS: Anion Gap 9 mmol/L (10-20); BUN (Urea Nitrogen) 12 mg/dL (8.4-25.7); Calc. Creatinine Clearance 0 mL/min (70-130); Calcium 8.9 mg/dL (7.8-10.44); Carbon Dioxide 27 mmol/L (23-31); Chloride 108 mmol/L (98-107); Estimated GFR 86; Glucose 210 mg/dL (83-110); Potassium 4.1 mmol/L (3.5-5.1); Sodium 140 mmol/L (136-145)
== END 2024-08-04 10:40 | disposition home or self-care (01) ==
LOC: LABBT 10:39
PROVIDERS: ATTEND Orthopaedic Surgery Hand Surgery
DX: Z01.818 Encounter for other preprocedural examination (principal); G56.03 Carpal tunnel syndrome, bilateral upper limbs
CPT/HCPCS: 80048; 85025; 93005; 93010

== ENCOUNTER 2024-08-05 06:42 | Day surgery (SDC) | payer MEDICARE ==
[2024-08-04 11:12] VITALS: BMI 32.8
[2024-08-05] MEDS ORDERED: fentaNYL PF 100 MCG/2 ML SYRINGE ONE (07:58)
[2024-08-05] MEDS ORDERED: PROPOFOL 20 ML ONE ×2 (07:58→08:56)
[2024-08-05] MEDS ORDERED: Lidocaine 1% PF 5 ML VIAL ONE (07:58)
[2024-08-05] MEDS ORDERED: Bacitracin Zinc Ointment 30 gm TUBE ONE (08:15)
[2024-08-05] MEDS ORDERED: Bupivacaine PF 0.5% 30 ML VIAL ONE (08:15)
[2024-08-05] MEDS ORDERED: CEFAZOLIN 2 GM VIAL ONE (08:45)
== END 2024-08-05 10:40 | disposition home or self-care (01) ==
LOC: SDC 06:42
PROVIDERS: ATTEND Orthopaedic Surgery Hand Surgery
PROC: 01N50ZZ Release Median Nerve, Open Approach (ICD-10-PCS; principal; 2024-08-05)
DX: G56.01 Carpal tunnel syndrome, right upper limb (principal); Z95.5 Presence of coronary angioplasty implant and graft; Z95.1 Presence of aortocoronary bypass graft; Z90.49 Acquired absence of other specified parts of digestive tract; Z90.89 Acquired absence of other organs; Z98.890 Other specified postprocedural states; Z88.5 Allergy status to narcotic agent; Z88.8 Allergy status to other drugs, medicaments and biological substances; Z79.82 Long term (current) use of aspirin
CPT/HCPCS: 64721; A6223; J0665; J2704

== ENCOUNTER 2025-07-21 10:16 | Outpatient (CLI) | payer MEDICARE | END 2025-07-21 10:17 | disposition home or self-care (01) | LOC: BICCT 10:16 | PROVIDERS: ATTEND Internal Medicine Hematology & Oncology | DX: Z12.2 Encounter for screening for malignant neoplasm of respiratory organs (principal); F17.210 Nicotine dependence, cigarettes, uncomplicated; C61 Malignant neoplasm of prostate | CPT/HCPCS: 71271 ==